=== PATIENT | female | born 1955 | race Caucasian/White ===

== ENCOUNTER 2024-12-30 16:40 | Inpatient (IN) | payer MEDICARE, OTHER ==
[~2024-12-30] VITALS: Ht 152.4 cm; Wt 89.0 kg
[2024-12-30 17:12] LABS: BASOPHILS ABSOLUTE AUTO 0.09 K/mm3 (0.00-0.23); BASOPHILS PERCENT AUTO 1 % (0-2); EOSINOPHILS ABSOLUTE AUTO 0.43 K/mm3 (0.00-0.68); EOSINOPHILS PERCENT AUTO 4 % (0-6); Hematocrit 41.0 % (33.0-51.0); Hemoglobin 13.6 g/dL (11.5-16.0); IMMATURE GRAN ABSOLUTE AUTO 0.06 K/mm3 (0.00-0.10); IMMATURE GRAN PERCENT AUTO 1 % (0-1); LYMPHOCYTES ABSOLUTE AUTO 2.99 K/mm3 (0.84-5.20); LYMPHOCYTES PERCENT AUTO 27 % (21-46); MONOCYTES ABSOLUTE AUTO 0.71 K/mm3 (0.16-1.47); MONOCYTES PERCENT AUTO 6 % (4-13); Mean Corpuscular HGB Conc 33.2 g/dL (31.5-36.5); Mean Corpuscular Volume 85 fL (80-100); NEUTROPHILS ABSOLUTE AUTO 6.75 K/mm3 (1.96-9.15); NEUTROPHILS PERCENT AUTO 61 % (41-73); NRBC ABSOLUTE 0.00 K/mm3 (0.00-0.02); NRBC Auto 0.0 /100 WBC (0.0-0.2); Platelet Count 273 K/mm3 (150-400); RDW Coefficient Variation 13.8 % (11.7-14.2); RDW Standard Deviation 42.9 fL (35.1-46.3)
[2024-12-30 17:27] LABS: Prothrombin Time Results 11.0 Sec (9.7-11.5)
[2024-12-30 17:31] LABS: Alanine Aminotransfer (ALT/SGP 39.0 U/L (12-78); Albumin, Blood 3.1 g/dL (3.4-5.0); Albumin/Globulin Ratio 0.7 (0.8-1.8); Anion Gap 7.0 mmol/L (3-11); Aspartate Aminotrans (AST/SGOT 34.0 U/L (12-37); Bilirubin, Total 0.2 mg/dL (0.1-1.0); Blood Urea Nitrogen 10.0 mg/dL (8-24); CO2, Blood 29.0 mmol/L (21-32); Calcium, Blood 8.9 mg/dL (8.5-10.1); Chloride, Blood 107.0 mmol/L (98-108); Creatinine, Blood 0.67 mg/dL (0.40-1.00); Globulin, Blood 4.3 g/dL (2.2-4.0); Glucose, Blood 132.0 mg/dL (70-99); Potassium, Blood 3.1 mmol/L (3.5-5.5); Sodium, Blood 140.0 mmol/L (136-145); Total Protein, Blood 7.4 g/dL (6.4-8.2)
[2024-12-30] MEDS ORDERED: FARXIGA10 MG PO ×2 (17:55→23:18)
[2024-12-30] MEDS ORDERED: TRAZ50 PO (17:55)
[2024-12-30] MEDS ORDERED: BUPROPION XL150 M1 PO (17:56)
[2024-12-30] MEDS ORDERED: ESCI10 PO (17:56)
[2024-12-30] MEDS ORDERED: HYDPAM25 PO (17:57)
[2024-12-30] MEDS ORDERED: Ondansetron HCl 2 MG / ML 2ML Vial IV PRN (20:25)
[2024-12-30] MEDS ORDERED: NS KCL 40 mEq 1,000 ML IV SCH (21:00)
[2024-12-30 23:00] VITALS: BP 156/75
[2024-12-30 23:29] VITALS: BP 142/87
[2024-12-31 05:17] VITALS: BP 142/77
--- NOTE | 2024-12-31 05:35 | NUR ---
ADMIT FROM ER, VOIDED IN BSC, 2P ASSIST TO TRANSFER FROM BED TO BSC, VERY SLURRED MUMBLED SPEECH, PATIENT REPORTS THIS IS HER BASELINE, SLEPT THROUGH THE NIGHT, PURWIK IN PLACE, CLEAR LIQUID DIET STARTED, TO HAVE MRI TODAY, WEAKNESS AND PAIN TO LEFT SIDE, RIGHT FACIAL DROP PATIENT REPORTS IS BASELINE, BED ALARM ON, CALL LIGHT WITH IN REACH, WILL RELAY TO AM RN
[2024-12-31 06:21] LABS: Alanine Aminotransfer (ALT/SGP 36 U/L (12-78); Albumin, Blood 2.9 g/dL (3.4-5.0); Albumin/Globulin Ratio 0.8 (0.8-1.8); Anion Gap 8 mmol/L (3-11); Aspartate Aminotrans (AST/SGOT 34 U/L (12-37); Bilirubin, Total 0.3 mg/dL (0.1-1.0); Blood Urea Nitrogen 8 mg/dL (8-24); CHOL/HDL RATIO 4.4; CO2, Blood 24 mmol/L (21-32); Calcium, Blood 8.2 mg/dL (8.5-10.1); Chloride, Blood 113 mmol/L (98-108); Cholesterol 171 mg/dL (50-200); Creatinine, Blood 0.57 mg/dL (0.40-1.00); Globulin, Blood 3.8 g/dL (2.2-4.0); Glucose, Blood 93 mg/dL (70-99); HDL Cholesterol 39 mg/dL (>39); LDL/HDL RATIO 2.8; Low Density Lipoprotein Chol 111 mg/dL (0-110); Magnesium, Blood 1.6 mg/dL (1.6-2.4); Potassium, Blood 3.9 mmol/L (3.5-5.5); Sodium, Blood 141 mmol/L (136-145); Thyroid Stimulating Hormone 1.610 uIU/mL (0.360-4.800); Total Protein, Blood 6.7 g/dL (6.4-8.2); Triglycerides 107 mg/dL (30-160); Very Low Density Lipoprot Chol 21 mg/dL (6-32)
[2024-12-31 06:31] LABS: BASOPHILS ABSOLUTE AUTO 0.08 K/mm3 (0.00-0.23); BASOPHILS PERCENT AUTO 1 % (0-2); EOSINOPHILS ABSOLUTE AUTO 0.43 K/mm3 (0.00-0.68); EOSINOPHILS PERCENT AUTO 4 % (0-6); Hematocrit 40.6 % (33.0-51.0); Hemoglobin 13.4 g/dL (11.5-16.0); IMMATURE GRAN ABSOLUTE AUTO 0.06 K/mm3 (0.00-0.10); IMMATURE GRAN PERCENT AUTO 1 % (0-1); LYMPHOCYTES ABSOLUTE AUTO 3.32 K/mm3 (0.84-5.20); LYMPHOCYTES PERCENT AUTO 29 % (21-46); MONOCYTES ABSOLUTE AUTO 0.60 K/mm3 (0.16-1.47); MONOCYTES PERCENT AUTO 5 % (4-13); Mean Corpuscular HGB Conc 33.0 g/dL (31.5-36.5); Mean Corpuscular Volume 85 fL (80-100); NEUTROPHILS ABSOLUTE AUTO 6.93 K/mm3 (1.96-9.15); NEUTROPHILS PERCENT AUTO 61 % (41-73); NRBC ABSOLUTE 0.00 K/mm3 (0.00-0.02); NRBC Auto 0.0 /100 WBC (0.0-0.2); Platelet Count 273 K/mm3 (150-400); RDW Coefficient Variation 14.1 % (11.7-14.2); RDW Standard Deviation 43.7 fL (35.1-46.3)
[2024-12-31 07:26] VITALS: BP 134/69
[2024-12-31 08:03] LABS: U Amphetamine Screen DETECTED; U Methamphetamine Screen DETECTED
[2024-12-31 08:04] LABS: U Barbituate Screen Not Detected; U Benzodiazapine Screen Not Detected; U Buprenorphine Screen Not Detected; U Cannabinoids Screen Not Detected; U Cocaine Screen Not Detected; U Methadone Screen Not Detected; U Opiates Screen Not Detected; U Oxycodone Screen Not Detected; U Phencyclidine Screen Not Detected
[2024-12-31] MEDS ORDERED: Enoxaparin 40 MG/0.4 ML SYR SC SCH (09:00)
--- NOTE | 2024-12-31 09:12 | NUR ---
pt laying in bed awake, visitor in room, a/ox4, speech is very difficult to understand, maybe due to not having dentures, follows commands, states she's a bit light headed, is scheduled for MRI, lungs are clear t/o, resp even and unlabored, no cough noted, hrr, no edema noted, ppp+1, cap refill<3 sec, vs stable, afebrile, piv to rhand, site is clear and patent, btx4, abd flat soft nontender, voids without diff, skin c/w/d, left side is weaker, and more painful, can move left arm and hand, no fine motor movement, dpfe weaker on left, pt has a hard time following directions, asked her to smile, she raised her eyebrows, face appears symetrical, tyrel, call light in reach.
[2024-12-31] MEDS ORDERED: LORazepam 2 MG/ML 1ML Injection IV ONE (15:05)
[2024-12-31 15:45] VITALS: BP 136/76
--- NOTE | 2024-12-31 18:33 | NUR ---
pt had an mri this afternoon, and an echo, she reports she is very claustrophobic, got order for ativan to tolerate the mri, she is pretty sedated, and did tolerate mri, is still pretty sleepy, can wake her, have continuous pulse ox on her, sats are in mid 90's, has slept most of the day, no further chages this shift. call light in reach.
[2024-12-31 19:24] VITALS: BP 149/77
[2024-12-31 23:59] VITALS: BP 148/81
[2025-01-01 04:57] VITALS: BP 152/77
--- NOTE | 2025-01-01 05:36 | NUR ---
NO ACUTE CHANGES, PATIENT CONITNUED TO SLEEP THROUGH THE NIGHT, YANIQUE MEYER OTHER STOPPED BY, PATIENT CONTINENT TO BSC, ONE PERSON ASSIST, ST TO SEE TODAY, POOR DENTITION/ORAL HYGIENE, RIGHT SIDE FACIAL DROOP, RAISES EYEBROWS BUT DOES NOT SMILE, MAKES NEEDS KNOWN, SPEECH VERY MUMBLED AND SLURRED, USED CALL LIGHT THIS EVENING APPRIATELY, BED ALARM ON, CALL LIGHT WITH IN REACH, WILL RELAY TO AM RN
[2025-01-01 07:13] VITALS: BP 157/69
[2025-01-01 11:46] VITALS: BP 156/76
--- NOTE | 2025-01-01 14:39 | NUR ---
Upon receiving a referral for spiritual care, I visited the patient. She stuggles to communicate but states that she is holding up okay but very tired. She welcomes prayer which I gladly supply. I then allow her to continue resting. I will continue to remain available.
[2025-01-01 16:09] VITALS: BP 152/78
--- NOTE | 2025-01-01 18:43 | NUR ---
SHIFT SUMMARY PT CONT LEVEL OF CARE WITH NO ACUTE CHANGES NOTED. PT ADVANCED TO EASY CHEW DIET PER ST THIS SHIFT.
--- NOTE | 2025-01-01 18:52 | NUR ---
HOME MEDICATION GIVEN TO PT SIGNIFIGANT OTHER
[2025-01-01 19:21] VITALS: BP 149/81
[2025-01-01 23:32] VITALS: BP 149/75
[2025-01-02 03:23] VITALS: BP 171/92
--- NOTE | 2025-01-02 05:24 | NUR ---
SUMMARY: PT A/OX4, CALLS APPROPRIATELY TO ENDORSE NEEDS AND IS SBA TO BSC. SHE HAD DIFFICULTY SLEEPING THIS SHIFT AND BECAME VERY ANXIOUS, EMOTIONAL AND IRRITABLE AT TIMES. SHE C/O FEELING UNABLE TO BREATHE DURING EPISODES DESPITE LS CLEAR T/O AND SPO2>97% ON RA. PROVIDERS MADE AWARE AND PRN ATARAX WAS RX'D AND RECEIVED FOR NO RELIEF THEN TRAZADONE WAS RX'D PER HOME BUT WAS ONLY BRIEFLY EFFECTIVE. SHE WAS PLACED ON 1L O2 FOR COMFORT AND BX EXERCISES WERE ENCOURAGED. PT THEN CONFESSED TO METH USE 1 DAY PRIOR TO ADMISSION AND WE DISCUSSED POSSIBILITY OF W/D OR DETOX CONTRIBUTING TO SYMPTOMS AND THIS SEEMED TO EASE HER ANXIETY SOME. TYLENOL WAS ALSO PROVIDED FOR RELIEF OF DAVE. SHE'S SBA TO BSC W/ATTENDS CHANGED PRN FOR URGENCY AND WAS ASSISTED W/REPOSITIONING PRN. PT REMAINED NSR ON TELE AT 80'S BPM. VSS/AFEBRILE. WILL REPORT TO DAY RN.
[2025-01-02 07:16] VITALS: BP 169/97
[2025-01-02] MEDS ORDERED: CLOP75 PO (15:38)
[2025-01-02] MEDS ORDERED: ATOR80 PO (15:38)
[2025-01-02] MEDS ORDERED: ASPI81CH PO (15:38)
[2025-01-02] MEDS ORDERED: LOSA50 PO (15:39)
--- NOTE | 2025-01-02 19:35 | NUR ---
ASSUMED CARE PT WANTING TO GO HOME, ENC TO WAIT FOR DR MCKINNON TO ASSESS, PT AGREED. ONCE DR MCKINNON ARRIVED PHYSICAL T ODERED TO ASSESS PT. PT WORKED WITH PHYSICAL THERAPY WITH A RECOMMENDATION OF HOME HEALTH. PT DISCHARGE ORDERS GIVEN AND IMPLEMENTED.
== END 2025-01-02 16:11 | disposition home health service (06) | DRG 65 ==
LOC: ER 16:40 → MEDS 20:19 → ERHOLD 20:19 → MEDS 22:49
PROVIDERS: Student in an Organized Health Care Education/Training Program; ADMIT Student in an Organized Health Care Education/Training Program
DX: I63.89 Other cerebral infarction (principal); G81.94 Hemiplegia, unspecified affecting left nondominant side; I10 Essential (primary) hypertension; R47.81 Slurred speech; F15.10 Other stimulant abuse, uncomplicated; R47.1 Dysarthria and anarthria; R29.707 NIHSS score 7; E87.6 Hypokalemia; Z71.51 Drug abuse counseling and surveillance of drug abuser; Z86.73 Personal history of transient ischemic attack (TIA), and cerebral infarction without residual deficits; Z88.0 Allergy status to penicillin
CPT/HCPCS: 36415; 70450; 70496; 70498; 70551; 80053; 80061; 82947; 83036; 83735; 84443; 85025; 85610; 85730; 92610; 93005; 93010; 93246; 93306; 94762; 97116; 97161; 99285-25; A9270; J1650; J2060; J2470; J3480; Q9967